=== PATIENT | female | born 1930 | race Caucasian/White ===

== ENCOUNTER 2017-11-17 00:23 | Emergency (ER) | payer MEDICARE, OTHER ==
[2017-11-17] VITALS (8 sets, daily range): BP systolic 160–212; BP diastolic 66–93; PULSE 62–82; RESP 18–20; TEMP 98.1–98.2; O2SAT 96–97
[~2017-11-17] VITALS: Ht 165.1 cm; Wt 83.0 kg
[2017-11-17] MEDS ORDERED: LISI40TA PO (00:58)
[2017-11-17] MEDS ORDERED: FURO1TAB60 PO (00:58)
[2017-11-17] MEDS ORDERED: IRON1TAB8 PO (00:58)
[2017-11-17] MEDS ORDERED: CARV12.52 PO (00:58)
[2017-11-17] MEDS ORDERED: SITA1TAB2 PO (00:58)
[2017-11-17] MEDS ORDERED: PANT40TA3 PO (00:58)
[2017-11-17] MEDS ORDERED: ALLO300T2 PO (00:58)
[2017-11-17] MEDS ORDERED: MAGN400T2 PO (00:58)
[2017-11-17] MEDS ORDERED: CALC12502 PO (00:58)
[2017-11-17] MEDS ORDERED: HYDR-3801 PO (00:58)
[2017-11-17] MEDS ORDERED: GLIM4TAB PO (00:58)
[2017-11-17] MEDS ORDERED: LEVO137T2 PO (00:58)
[2017-11-17] MEDS ORDERED: SODIUM CHLORIDE 0.9% FLUSH 10 ML FLUSH IVF PRN (01:45)
[2017-11-17 01:48] LABS: AUTOMATED NEUTROPHIL # 3.6 TH/MM3 (1.8-7.7); BASOPHIL % 0.7 % (0.0-2.0); EOSINOPHIL # 0.1 TH/MM3 (0-0.4); EOSINOPHIL % 1.9 % (0.0-4.0); HEMATOCRIT 30.1 % (35.0-46.0); HEMOGLOBIN 9.7 GM/DL (11.6-15.3); LYMPH % 25.3 % (9.0-44.0); LYMPHOCYTE # 1.4 TH/MM3 (1.0-4.8); MEAN CELL VOLUME 95.1 FL (80.0-100.0); MEAN CORPUSCULAR HEMOGLOBIN 30.5 PG (27.0-34.0); MEAN CORPUSCULAR HGB CONC 32.1 % (32.0-36.0); MONO % 11.2 % (0.0-8.0); MONOCYTE # 0.6 TH/MM3 (0-0.9); NEUT % 60.9 % (16.0-70.0); PLATELET COUNT 217 TH/MM3 (150-450); RED BLOOD COUNT 3.17 MIL/MM3 (4.00-5.30); RED CELL DISTRIBUTION WIDTH 22.7 % (11.6-17.2); WHITE BLOOD COUNT 5.7 TH/MM3 (4.0-11.0)
--- NOTE | 2017-11-17 01:49 | PD ---
HPI Chief Complaint: Respiratory Symptoms Time Seen by Provider: 02:38 Travel History International Travel<30 days: No Contact w/Intl Traveler<30days: No Traveled to known affect area: No History of Present Illness HPI 87-year-old female presents to the emergency department for complaint of elevated blood pressure and shortness of breath. Patient is visiting from out [place], [place]. Patient states she was recently hospitalized in September and [place] and identified to have some congestive heart failure due to elevated blood pressure also was identified to have anemia requiring blood transfusion and an iron transfusion. 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 Patient has no chest pain. Patient does not report orthopnea or PND. Patient' s been told by her primary to monitor her blood pressure since this evening her blood pressure was 220 systolic. Because of this she became very concerned and decided to come to the emergency room for evaluation. Patient is visiting the area from October through December. On Thursday evening she did eat [place] food and thinks perhaps was too much salt load causing her blood pressure go up and causing her to have shortness of breath. Patient however has not noticed any swelling of her lower extremities or feet. Patient is taking Lasix since September 05 management of volume overload. Patient also does not have any lower extremity pain. Patient does complain of stomach being upset as well. No diarrhea or constipation. No nausea or vomiting. PFSH Past Medical History Cardiovascular Problems: Yes High Cholesterol: Yes Diabetes: Yes Patient Takes Glucophage: Yes Diminished Hearing: No Gastrointestinal Disorders: Yes GERD: Yes Hypertension: Yes Thyroid Disease: Yes Tetanus Vaccination: < 5 Years Influenza Vaccination: No ?: Not Menopausal: Yes Past Surgical History Cholecystectomy: Yes Other Surgery: Yes (thyroidectomy) Social History Alcohol Use: No Tobacco Use: No Substance Use: No Allergies-Medications (Allergen,Severity, Reaction): Coded Allergies: Penicillins (Verified Allergy, Severe, Hives, 11/17/17) Sulfa (Sulfonamide Antibiotics) (Verified Allergy, Severe, Hives, 11/17/17) Reported Meds & Prescriptions Reported Meds & Active Scripts Active Reported Januvia (Sitagliptin Phosphate) 100 Mg Tab 100 Mg PO DAILY Pantoprazole (Pantoprazole Sodium) 40 Mg Tab 40 Mg PO DAILY Lisinopril 40 Mg Tab 40 Mg PO BID Magnesium Oxide 400 Mg Tab 400 Mg PO DAILY Levothyroxine (Levothyroxine Sodium) 137 Mcg Tab 137 Mcg PO DAILY Niferex Tablet (Multi-Vit w/ Iron) 150MG-60-1 Tablet 1 Tab PO DAILY Hydralazine (Hydralazine HCl) 100 Mg Tab 100 Mg PO BID Take with meals Glimepiride 4 Mg Tab 4 Mg PO BIDAC Lasix (Furosemide) 40 Mg Tab 40 Mg PO DAILY Carvedilol 12.5 Mg Tab 12.5 Mg PO BID Calcium Carbonate 500 Mg Calcium (1250 Mg) Tab 1,250 Mg PO BID 1,250 mg calcium carbonate (500 mg elemental calcium) Allopurinol 300 Mg Tab 300 Mg PO DAILY Review of Systems Except as stated in HPI: all other systems reviewed are Neg General / Constitutional: No: Fever, Chills Eyes: No: Visual changes HENT: No: Headaches Cardiovascular: No: Chest Pain or Discomfort Respiratory: Positive: Shortness of Breath Gastrointestinal: No: Nausea, Vomiting, Abdominal Pain Genitourinary: No: Flank Pain Musculoskeletal: No: Myalgias, Arthralgias, Limited ROM, Edema, Pain Skin: No Rash Neurologic: No: Weakness Psychiatric: No: Anxiety Hematologic/Lymphatic: No: Lymph Node Enlargement Physical Exam Narrative GENERAL: Well-developed well-nourished female in no acute distress no respiratory distress SKIN: Warm and dry. HEAD: Normocephalic. EYES: No scleral icterus. No injection or drainage. NECK: Supple, trachea midline. No JVD or lymphadenopathy. CARDIOVASCULAR: Regular rate and rhythm with 3/6 holosystolic murmur, no gallops or rubs. RESPIRATORY: Breath sounds equal bilaterally. No accessory muscle use. GASTROINTESTINAL: Abdomen soft, non-tender, nondistended. MUSCULOSKELETAL: No cyanosis, or edema. No lower leg or pedal edema bilaterally. BACK: Nontender without obvious deformity. No CVA tenderness. Data Data Last Documented VS Vital Signs Date Time Temp Pulse Resp B/P (MAP) Pulse Ox O2 Delivery O2 Flow Rate FiO2 11/17/17 06:10 69 18 212/79 (123) 97 Room Air 11/17/17 00:58 98.1 Orders Orders Complete Blood Count With Diff (11/17/17 01:31) Comprehensive Metabolic Panel (11/17/17 01:31) B-Type Natriuretic Peptide (11/17/17 01:31) Ckmb (Isoenzyme) Profile (11/17/17 01:31) Troponin I (11/17/17 01:31) Iv Access Insert/Monitor (11/17/17 01:31) Electrocardiogram (11/17/17 01:31) Ecg Monitoring (11/17/17 01:31) Oximetry (11/17/17 01:31) Oxygen Administration (11/17/17 01:31) Chest, Single Ap (11/17/17 01:31) Sodium Chloride 0.9% Flush (Ns Flush) (11/17/17 01:45) CKMB (11/17/17 01:15) CKMB% (11/17/17 01:15) Hydralazine Inj (Apresoline Inj) (11/17/17 03:00) Ct Pulmonary Angiogram (11/17/17 ) Ct Abd/Pel W Iv Contrast(Rout) (11/17/17 ) Iodixanol 320 Inj (Rad Ct) (Visipaque 32 (11/17/17 03:58) Clonidine (Catapres) (11/17/17 05:00) Labs Laboratory Tests Test 11/17/17 01:15 White Blood Count 5.7 TH/MM3 Red Blood Count 3.17 MIL/MM3 Hemoglobin 9.7 GM/DL Hematocrit 30.1 % Mean Corpuscular Volume 95.1 FL Mean Corpuscular Hemoglobin 30.5 PG Mean Corpuscular Hemoglobin Concent 32.1 % Red Cell Distribution Width 22.7 % Platelet Count 217 TH/MM3 Mean Platelet Volume 11.0 FL Neutrophils (%) (Auto) 60.9 % Lymphocytes (%) (Auto) 25.3 % Monocytes (%) (Auto) 11.2 % Eosinophils (%) (Auto) 1.9 % Basophils (%) (Auto) 0.7 % Neutrophils # (Auto) 3.6 TH/MM3 Lymphocytes # (Auto) 1.4 TH/MM3 Monocytes # (Auto) 0.6 TH/MM3 Eosinophils # (Auto) 0.1 TH/MM3 Basophils # (Auto) 0.0 TH/MM3 CBC Comment AUTO DIFF Differential Comment AUTO DIFF CONFIRMED Platelet Estimate NORMAL Platelet Morphology Comment NORMAL Ovalocytes 1+ Blood Urea Nitrogen 23 MG/DL Creatinine 1.40 MG/DL Random Glucose 200 MG/DL Total Protein 7.0 GM/DL Albumin 3.7 GM/DL Calcium Level 10.0 MG/DL Alkaline Phosphatase 75 U/L Aspartate Amino Transf (AST/SGOT) 27 U/L Alanine Aminotransferase (ALT/SGPT) 33 U/L Total Bilirubin 0.3 MG/DL Sodium Level 132 MEQ/L Potassium Level 3.9 MEQ/L Chloride Level 94 MEQ/L Carbon Dioxide Level 28.8 MEQ/L Anion Gap 9 MEQ/L Estimat Glomerular Filtration Rate 36 ML/MIN Total Creatine Kinase 114 U/L Creatine Kinase MB 4.4 NG/ML Troponin I LESS THAN 0.02 NG/ML B-Type Natriuretic Peptide 80 PG/ML MDM Medical Decision Making Medical Screen Exam Complete: Yes Emergency Medical Condition: Yes Medical Record Reviewed: Yes Interpretation(s) EKG: Normal sinus rhythm with first-degree rate 63 first degree AV block left axis deviation and LVH, QS anteroseptally, no acute ST elevation Vital Signs Date Time Temp Pulse Resp B/P (MAP) Pulse Ox O2 Delivery O2 Flow Rate FiO2 11/17/17 01:05 96 Room Air 11/17/17 01:05 96 11/17/17 01:01 18 96 Room Air 11/17/17 00:58 98.1 69 18 160/66 (97) 96 11/17/17 00:29 98.1 82 20 190/78 (115) 97 Last Impressions Chest X-Ray 11/17/17 0131 Signed Impressions: Service Date/Time: Friday, November 17, 2017 01:41 - CONCLUSION: Mild interstitial prominence likely related to pulmonary venous hypertension or mild edema. Ayad Oconnor MD CBC & BMP Diagram 11/17/17 01:15 Total Protein 7.0, Albumin 3.7, Calcium Level 10.0, Alkaline Phosphatase 75, Aspartate Amino Transf (AST/SGOT) 27, Alanine Aminotransferase (ALT/SGPT) 33, Total Bilirubin 0.3 Differential Diagnosis CHF uncontrolled hypertension ACS PE pericardial effusion AAA/TAA aortic dissection Narrative Course Patient placed on case monitor IV access obtained specimens collected and sent for resulting continuous pulse oximetry and monitored Troponin I is less than 0.02; CK total is 114 with a CK-MB percent of 3.8% this is not elevated Chest x-ray shows mild interstitial prominence Patient on chemistry identified to have renal insufficiency Patient informed of imaging and lab results again EKG shows no acute ST elevation or injury pattern nonspecific T wave changes laterally age- indeterminate QS anteroseptally and inferiorly patient with LVH Lab values resulted and found to be grossly within normal limits except for mild renal insufficiency Patient given hydralazine for elevation of blood pressure CT abdomen and pelvis as well as CT pulmonary angiogram ordered due to patient' s complaint of ongoing shortness of breath with recent travel from [place] to [place]. Patient also complains of funny sensation abdomen therefore will evaluate for pulmonary embolism and extend imaging studies here include abdomen and pelvis with IV contrast to assess abdominal aorta. Patient given clonidine 0.1 mg mL for blood pressure elevation CT pulmonary angiogram is remarkable for no PE a mild to moderate size pericardial effusion is identified, with measurement up to 1.1 cm; CT abdomen and pelvis reveals no abdominal aortic aneurysm some atherosclerotic disease is noted Patient informed of imaging results; patient had mentioned that in September is identified that she had fluid around her heart she does not know if she had a pericardial effusion heart failure or both. Patient has since her admission September been referred to a ply splicer for management of her blood pressure and reportedly was informed that her heart was fine. Patient does not have any of these medical records with her. Patient is here for a 4 month vacation and does not have a primary care provider or ply splicer. Patient's case discussed with on-call ply splicer Dr. Michaud who will see patient in the office as an outpatient regarding pericardial effusion. Diagnosis Primary Impression: Pericardial effusion Additional Impression: HTN (hypertension) Referrals: Gary Marino MD 1 day Call office in the AM to schedule follow up appointment with ply splicer, Dr Michaud Patient Instructions: General Instructions Additional Instructions: continue current medications follow up with Dr Michaud ply splicer regarding pericardial effusion Return to the emergency department for a concerns or change in condition Jacqueline Reis MD Nov 17, 2017 01:49
[2017-11-17 02:02] LABS: CHLORIDE 94 MEQ/L (98-107); SODIUM (NA) 132 MEQ/L (136-145)
[2017-11-17 02:06] LABS: ALBUMIN 3.7 GM/DL (3.4-5.0); BICARBONATE 28.8 MEQ/L (21.0-32.0); BLOOD UREA NITROGEN 23 MG/DL (7-18); GLUCOSE,RANDOM 200 MG/DL (74-106)
[2017-11-17 02:09] LABS: ALT (GPT) 33 U/L (10-53); AST (GOT) 27 U/L (15-37); GLOMERULAR FILTRATION RATE 36 ML/MIN (>89)
[2017-11-17 02:10] LABS: TOTAL BILIRUBIN ADULT 0.3 MG/DL (0.2-1.0)
[2017-11-17 02:12] LABS: ALKALINE PHOSPHATASE 75 U/L (45-117)
[2017-11-17 02:14] LABS: TROPONIN I LESS THAN 0.02 NG/ML (0.02-0.05)
[2017-11-17 02:16] LABS: OVALOCYTES 1+ (NORMAL)
--- NOTE | 2017-11-17 02:20 | RADRPT ---
EXAM DATE/TIME: 11/17/2017 01:41 [facility] COMPARISON: No previous studies available for comparison. INDICATIONS : Shortness of breath. MEDICAL HISTORY : Hypertension. Gastroesophageal reflux disease. SURGICAL HISTORY : None. ENCOUNTER: Initial ACUITY: 1 day PAIN SCORE: 0/10 LOCATION: Bilateral chest FINDINGS: The heart size is within normal limits. There is mild interstitial prominence of the interstitium . F ocal alveolar consolidation is not seen. No effusion seen. CONCLUSION: Mild interstitial prominence likely related to pulmonary venous hypertension or mild edema. Ayad Oconnor MD on November 17, 2017 at 2:16 Board Certified Radiologist. This report was verified electronically.
[2017-11-17] MEDS ORDERED: hydrALAZINE HCL 20 MG/ML VIAL IV PUSH ONE ×2 (03:00→06:30)
[2017-11-17] MEDS ORDERED: IODIXANOL 320 MG/ML 10 ML VIAL (for Rad CT) IVCONTRAST ONE (03:58)
--- NOTE | 2017-11-17 04:16 | RADRPT ---
EXAM DATE/TIME: 11/17/2017 03:32 [facility] COMPARISON: No previous studies available for comparison. INDICATIONS : Shortness of breath. IV CONTRAST: 50 cc Visipaque (iodixanol) IV ; Cumulative dose for multiple exams. RADIATION DOSE: 16.72 CTDIvol (mGy) MEDICAL HISTORY : Hypertension. Gastroesophageal reflux disease. Diabetes mellitus type 2. SURGICAL HISTORY : Cholecystectomy. ENCOUNTER: Initial ACUITY: 1 day PAIN SCALE: 0/10 LOCATION: chest TECHNIQUE: Volumetric scanning of the chest was performed using a pulmonary embolism protocol MIP images were re constructed. Using automated exposure control and adjustment of the mA and/or kV according to patien t size, radiation dose was kept as low as reasonably achievable to obtain optimal diagnostic quality images. DICOM format image data is available electronically for review and comparison. Follow-up recommendations for detected pulmonary nodules are based at a minimum on nodule size and pa tient risk factors according to Fleischner Society Guidelines. FINDINGS: PULMONARY ARTERIES: No filling defects are seen in the pulmonary arteries through the segmental level. LUNGS: There is interstitial disease and emphysematous change seen in the lungs. PLEURAE: There is no pleural thickening or pleural effusion. MEDIASTINUM: There is good visualization of the great vessels of the middle mediastinum. No evidence of mediastin al or hilar adenopathy/mass. There are multiple normal-sized lymph nodes seen in the mediastinum. The re is a mild to moderate pericardial effusion measuring up to 1.1 cm posteriorly. Calcifications are seen at the aortic valve. MUSCULOSKELETAL: Within normal limits for patient age. MISCELLANEOUS: The visualized upper abdominal organs demonstrate no acute abnormality. CONCLUSION: 1. No pulmonary embolus. 2. Interstitial disease and emphysematous change. 3. Mild to moderate pericardial effusion measuring up to 1.1 cm. Ayad Oconnor MD on November 17, 2017 at 4:10 Board Certified Radiologist. This report was verified electronically.
--- NOTE | 2017-11-17 04:23 | RADRPT ---
EXAM DATE/TIME: 11/17/2017 03:32 [facility] COMPARISON: No previous studies available for comparison. INDICATIONS : Abdominal pain. IV CONTRAST: 50 cc Visipaque (iodixanol) IV ; Cumulative dose for multiple exams. ORAL CONTRAST: No oral contrast ingested. RADIATION DOSE: 18.70 CTDIvol (mGy) MEDICAL HISTORY : Hypertension. Gastroesophageal reflux disease. Diabetes mellitus type 2. SURGICAL HISTORY : Cholecystectomy. ENCOUNTER: Initial ACUITY: 1 day PAIN SCALE: 0/10 LOCATION: Bilateral upper quadrant lower quadrant. TECHNIQUE: Volumetric scanning of the abdomen and pelvis was performed. Using automated exposure control and ad justment of the mA and/or kV according to patient size, radiation dose was kept as low as reasonably achievable to obtain optimal diagnostic quality images. DICOM format image data is available electro nically for review and comparison. FINDINGS: LOWER LUNGS: There is a mild to moderate pericardial effusion measuring up to 1.1 cm at the posterior cardiac kartik in. LIVER: Homogeneous density without lesion. There is no dilation of the biliary tree. The patient is status post cholecystectomy. SPLEEN: Normal size without lesion. PANCREAS: Within normal limits. KIDNEYS: No renal stones or hydronephrosis is seen. There are cystic changes seen at the left kidney with the largest cyst seen inferiorly measuring 3.2 cm. ADRENAL GLANDS: There is a 2.9 cm mass seen at the left adrenal gland. This mass appears to have small punctate calci fications. There appears to be second 1.3 cm mass at the left adrenal gland. The right adrenal gland is normal. VASCULAR: There is no aortic aneurysm. Arterial calcifications are seen. BOWEL/MESENTERY: There are scattered colonic diverticula. The appendix appears normal. ABDOMINAL WALL: Within normal limits. RETROPERITONEUM: There is no lymphadenopathy. BLADDER: No wall thickening or mass. REPRODUCTIVE: Within normal limits. INGUINAL: There is no lymphadenopathy or hernia. MUSCULOSKELETAL: There is degenerative change in lumbar spine. CONCLUSION: 1. No acute abnormality is seen. 2. Colonic diverticula. 3. Left renal cyst. 4. 2 masses seen in the left adrenal gland. These are nonspecific. They could be better characterized with a abdominal MRI examination. This could be done on a non-emergent basis as an outpatient. Ayad Oconnor MD on November 17, 2017 at 4:14 Board Certified Radiologist. This report was verified electronically.
[2017-11-17] MEDS ORDERED: cloNIDine HCL 0.1 MG TAB PO ONE (05:00)
--- NOTE | 2017-11-17 14:28 | EKG ---
Date Performed: 11/17/2017 Time Performed: 01:39:16 PTAGE: 87 years EKG: Sinus rhythm WITH FIRST DEGREE AV BLOCK MARKED LEFT AXIS DEVIATION LEFT VENTRICULAR HYPERTROPHY AND ST-T CHANGE P OSSIBLE ANTERIOR MYOCARDIAL INFARCTION ABNORMAL ECG NO PREVIOUS TRACING DOCTOR: Emma Younger Interpretating Date/Time 11/17/2017 14:28:02
== END 2017-11-17 07:06 | disposition home or self-care (01) ==
LOC: PHED 00:23
DX: I31.3 Pericardial effusion (noninflammatory) (principal); I10 Essential (primary) hypertension; R94.31 Abnormal electrocardiogram [ECG] [EKG]; E11.9 Type 2 diabetes mellitus without complications; K21.9 Gastro-esophageal reflux disease without esophagitis; E78.00 Pure hypercholesterolemia, unspecified; Z79.84 Long term (current) use of oral hypoglycemic drugs
CPT/HCPCS: 71045; 71275; 74177; 80053; 82550; 82552; 83880; 84484; 85025; 93005; 96374; 96376; 99285; J0360; Q9967